=== PATIENT | male | born 1935 | race Caucasian/White ===

== ENCOUNTER → 2017-01-03 06:40 | Day surgery (SDC) | payer MEDICARE, BC ==
--- NOTE | 2016-12-24 21:57 | HP ---
PREOPERATIVE HISTORY AND PHYSICAL: DATE OF ADMISSION: 01/03/17 This patient is scheduled for Same-Day Surgery admission by Dr. Castro on , 01/03/17. DATE OF PREOPERATIVE HISTORY AND PHYSICAL EXAMINATION: 12/24/16 CHIEF COMPLAINT: Right inguinal hernia. HISTORY OF PRESENT ILLNESS: The patient is a 81-year-old male referred to Dr. Castro from Dr. Dalton with a right inguinal hernia. The patient noticed bulging in the right lower abdomen in early October. He denies any signs or symptoms to suggest incarceration or strangulation; he did not have any trauma to the area. Dr. Castro examined the patient and notes an obvious right inguinal hernia, which is soft and easily reducible. Dr. Castro has recommended open repair of the right inguinal hernia with mesh as a same-day procedure and has described the nature of the surgical procedure, the rationale for the procedure, the relevant risks, benefits and alternatives and today I reviewed the typical postoperative care and recovery with the patient and his . He has a significant cardiac history and has been cleared by Dr. Samano from Cardiology to proceed with the recommended surgery. The patient has had a chance to ask questions and stated that he understands the information and is satisfied with the answers given to his questions. He will sign surgical consent on the day of surgery. PAST MEDICAL HISTORY: Significant for aortic valve replacement and coronary artery bypass grafting at [facility], 05/11/16 for significant aortic stenosis and three-vessel disease with preserved LV systolic function; type 2 diabetes; hypertension; hypercholesterolemia; right bundle branch block; COPD; spinal stenosis. PAST SURGICAL HISTORY: Aortic valve replacement and three-vessel coronary artery bypass grafting at [facility], 05/11/16; cholecystectomy 1969; appendectomy many years ago; bilateral hip replacements over 20 years ago; and bilateral cataract extraction 2005. MEDICATIONS: 1. Metformin 1000 mg p.o. daily every evening. 2. Ocuvite eye health formula daily. 3. Zocor 40 mg p.o. daily at bedtime. 4. Aspirin 81 mg p.o. daily. The patient is to continue the aspirin in the perioperative period. 5. Glipizide ER 5 mg daily in the morning and 2 tablets daily every evening. 6. Furosemide 40 mg p.o. daily. 7. Desloratadine 5 mg p.o. daily. 8. Metoprolol ER 25 mg one half tablet p.o. daily. 9. Potassium chloride 10 mEq p.o. daily. 10. Magnesium oxide 400 mg p.o. daily. 11. Colace 100 mg p.o. b.i.d. p.r.n. 12. Vitamin D3 5000 International Units daily. 13. Spiriva HandiHaler 18 mcg one unit inhalation daily. 14. ProAir HFA 90 base mcg per actuation 2 puffs by mouth every 4 hours as needed. 15. Azelastine nasal spray 0.1% two inhalation in each nostril twice daily. ALLERGIES: PENICILLIN caused swelling of the hands, PNEUMOVAX caused some type of unspecified reaction, LISINOPRIL caused cough, HYDROCODONE and OXYCODONE caused extreme mental confusion, and the patient refuses to take those. FAMILY HISTORY: No known anesthesia complications, bleeding tendencies, or clotting disorders. SOCIAL HISTORY: He is and his accompanied him to the visit today; he denies the use of alcohol; he is a former smoker, formerly smoked up to 2 packs of cigarettes per day in the distant past, quit smoking cigarettes completely in 2014 and occasionally still smokes a pipe. REVIEW OF SYSTEMS: Please see Dr. Samano' cardiology consultation note for details; the patient underwent aortic valve replacement and three-vessel coronary artery bypass in April 2016 for significant aortic stenosis and triple- vessel disease; he has preserved LV systolic function; he is exercising routinely by walking for quarter mile using his walker due to knee pain and he has an exercise bike which he uses for 15 minutes daily; he denies any chest pain, pressure, or palpitations. He has had chronic lower extremity edema for more than a year and is on Lasix daily and uses bilateral compression stockings ; he has no heart failure symptoms. He has a history of type 2 diabetes, he does not check fingersticks; he has a history of COPD and associated chronic cough. No recent upper respiratory infections; he has good appetite and denies any gastrointestinal symptoms; he denies any previous anesthesia complications; he denies any history of deep vein thrombosis or pulmonary embolism; he received a blood transfusion in 2014 after rib fracture related to a fall. He denies any dysuria. PHYSICAL EXAMINATION GENERAL SURVEY: The patient is a 81-year-old male, well developed, well nourished, in no acute distress. VITAL SIGNS: Height 69.5 inches, weight 179 pounds, body mass index 26.2. Blood pressure 120/74, pulse 68 and regular, respiratory rate 16, temperature 98.1 tympanic. HEENT: Benign. NECK: Supple. No cervical lymphadenopathy. No thyromegaly. BACK: No CVA tenderness. LUNGS: Clear to auscultation, breath sounds are decreased throughout. HEART: Regular rate and rhythm. Mild systolic ejection murmur. ABDOMEN: Active bowel sounds, well-healed scar from previous appendectomy. Soft and nondistended and nontender throughout. No obvious masses, organomegaly , or evidence of umbilical hernia. Inguinal exam as done by Dr. Castro revealed an obvious right inguinal hernia, which is soft and easily reducible. No left inguinal hernia and the testes are normally descended. EXTREMITIES: Warm. Lower extremities with bilateral compression stockings. RECTAL: Deferred. NEUROLOGIC: Alert and oriented x3. Steady gait. SKIN: Warm, dry, intact. IMPRESSION: Right inguinal hernia. PLAN: Same-day surgery admission to Dr. Castro's service on , 01/03/17 , for open repair of right inguinal hernia with mesh. DARRYL APONTE NP CC: Dr. [facility], [facility]; Dr. Dalton; Dr. Samano * [id number]/[facility] #: [id number] MTDD
[~2017-01-03 06:40] MED LIST: Acetaminophen TAB* 325 MG PO PRN; Buffered Lidocaine 1% SYR 3ML* 3 ML/SYR SYRINGE INTRADERM ONE; Bupivacaine 0.5% W/EPI SDV* 30 ML VIAL ONE; Clindamycin 900 MG IVPREMIX(* 900 MG/50 ML SDV IV ONE; Dexamethasone IV* 4 MG/ML 1 ML (4 MG) IV SLOW PU ONE; Dexamethasone IV* 4 MG/ML 1 ML (4 MG) ONE; EPHEDrine (Pressors)* 50 MG/ML VIAL ONE; Famotidine IV* 10 MG/ML 2 ML (20 mg) IV ONE; Famotidine IV* 10 MG/ML 2 ML (20 mg) ONE; HYDROcodone/ACETAMIN 5-325 MG* 1 TAB PO PRN; Heparin VIAL(*) 5000 UNITS/ML VIAL (FIVE THOUSAND) ONE; Lidocaine 1% INJ* 10 MG/ML 30 ML SDV ONE; Lidocaine 2% PF * 5 ML VIAL ONE; Midazolam* 1 MG/ML 2 ML VIAL (2 MG) ONE; Ondansetron INJ* 2 MG/ML VIAL ONE; PROCHLORPERAZINE INJ 5 MG/ML 2 ML VIAL IV PRN; Phenylephrine IV* 40 MCG/ML 10 ML SYRINGE ONE; Propofol* 10 MG/ML 20 ML BTL IV PUSH ONE; fentaNYL* 50 MCG/ML 2 ML VIAL (100 MCG VIAL) IV PRN; fentaNYL* 50 MCG/ML 2 ML VIAL (100 MCG VIAL) ONE
[2017-01-03 11:09] VITALS: BP 136/69
--- NOTE | 2017-01-04 00:44 | OP ---
DATE OF OPERATION: 01/03/17 [facility] DATE OF : 39 SURGEON: Wilina Castro MD FIRE COORDINATOR: Elicia Martin NP ANESTHESIOLOGIST: Dr. Gamez ANESTHESIA: LMAC. PRE-OP DIAGNOSIS: Right inguinal hernia. POST-OP DIAGNOSIS: Right inguinal hernia. OPERATIVE PROCEDURE: Open repair of right inguinal hernia with mesh. DESCRIPTION OF PROCEDURE: The patient was supine on the operating table. After adequate intravenous sedation, compression stockings, Peter Hugger warmer, and intravenous antibiotics, the right groin was clipped and prepped with antiseptic and draped in a sterile fashion. Local infiltrative anesthesia was administered. An approximately 2-1/2 inch incision was created and carried down through the tissue layers to the external oblique, which was opened in the direction of its fibers. Cord structures were encircled with a [place] drain, tented upward. There was a large direct space hernia incorporating really the entirety of the inguinal floor. The transversalis was opened and the preperitoneal plane was developed. A Prolene Hernia System, PHSE patch, was put into place. The internal leaf was sutured at Abhijeet's ligament and underneath the transverse abdominis. The external leaf was placed on top and sutured at the tubercle, at the transverse abdominis, and at the inguinal ligament. Tails were split, brought around the cord structures, tacked down laterally. External oblique was closed over top with 2-0 Polysorb, Aiden's with 3-0 Polysorb, skin with 4-0 Surgipro followed by sterile dressing. He tolerated the procedure well. He was brought to Recovery in good condition. No complications. No drains. No pathologic specimens. Sponge and instrument counts correct. Estimated blood loss 10 mL. CC: Dr. Castro; Dr. Yosef Dalton; Dr. Genny Samano * [id number]/[facility] #: [id number] [facility]
== END | disposition home or self-care (01) ==
LOC: OR 06:40
PROVIDERS: ATTEND Surgery
DX: K40.90 Unilateral inguinal hernia, without obstruction or gangrene, not specified as recurrent (principal); I25.10 Atherosclerotic heart disease of native coronary artery without angina pectoris; Z95.1 Presence of aortocoronary bypass graft; E11.9 Type 2 diabetes mellitus without complications; I10 Essential (primary) hypertension; E78.00 Pure hypercholesterolemia, unspecified; J44.9 Chronic obstructive pulmonary disease, unspecified; Z79.82 Long term (current) use of aspirin; Z88.5 Allergy status to narcotic agent; Z88.0 Allergy status to penicillin; Z87.891 Personal history of nicotine dependence
CPT/HCPCS: C1781; J1100; J1644; J2250; J2405; J2704; J3010

== ENCOUNTER 2017-04-30 09:57 | Emergency (ER) | payer MEDICARE, BC ==
--- NOTE | 2017-04-30 11:44 | UC ---
bethany Santillan Timothy, scribed for Mónica Manzo MD on 04/30/17 at 1108 . General HPI - HPI Summary HPI Summary: Mr. Abbasi is a 81 yo male presenting to [facility] S/P a mechanical fall last night in which he tripped on a welcome mat and landed on his face and left arm. No LOC. Pt was evaluated on scene by EMS but declined transfer. Pt now c/o 8/10 dull pain in his nose and left elbow. Pt reports he aches "all over." He notes some epistaxis at the time of injury which resolved. Pt states he broke his dentures. He also c/o generalized stiffness. He states ice helps to alleviate his pain. He denies any LOC or memory loss, as well as blood from his ears, CP , SOB, abd pain, MICHELLE, or hematuria. No vision changes. Pt states neck feels stiff with movement on right side. No ext weakness or pain. He self-medicated with tramadol this morning with some improvement. tdap UTD. No paresthesia. No weakness ext x 4. Pt states "I didn't break anything, I just want my elbow looked at." Pt is on 81mg ASA QD. Pt is RHD. His MHx includes CABG x3, AVR, HI , angina, valvular heart disease, mitral stenosis, aortic valve replacement, HLD , HTN, aortic stenosis, RBBB, ulnar neuropathy, hip replacement x2, asthma, bronchitis, BPH, arthritis, DM II, claustrophobia, hay fever, shingles. Pt medication list reviewed this visit, he believes his tetanus is UTD. - History of Current Complaint Chief Complaint: UCTrauma Stated Complaint: FELL NOSE/ARM INJURY Time Seen by Provider: 04/30/17 11:10 Hx Obtained From: Patient Onset/Duration: Sudden Onset, Lasting Hours, Still Present Timing: Constant Onset Severity: Moderate Current Severity: Moderate Pain Intensity: 8 - /10 Pain Location at: LUE, nose Character: dull Alleviating: ice Associated Signs & Symptoms: Positive: Trauma, Other - LUE and facial pain. Negative: Abdominal Pain, Chest Pain, SOB - Allergy/Home Medications Allergies/Adverse Reactions: Allergies Allergy/AdvReac Type Severity Reaction Status Date / Time Lisinopril Allergy Intermediate Coughing Verified 04/30/17 10:07 Penicillins [PCN] Allergy Intermediate Rash And Verified 04/30/17 10:07 Itching Pneumococcal Polysaccharides Allergy Unknown Verified 04/30/17 10:07 [From Pneumovax] Reaction Details Home Medications: Home Medications Tiotropium [place] Monohydrate [Spiriva Respimat] 2 puff INH DAILY 04/30/17 [ History Confirmed 04/30/17] Tramadol HCl [Ultram] 1 tab PO Q6HR PRN 04/30/17 [History Confirmed 04/30/17] PMH/Surg Hx/FS Hx/Imm Hx Previously Healthy: No Endocrine History: Diabetes Cardiovascular History: Hypertension, Myocardial Infarction, Other - CABG, AVR, HI, angina, valvular heart disease, mitral stenosis, aortic valve replacement, HLD, HTN, aortic stenosis, RBBB Other Cardiovascular History: see above Respiratory History: Asthma, Bronchitis GI/ History: Other Other GI/ History: BPH - Surgical History Surgical History: Yes Surgery Procedure, Year, and Place: bilat total hip replacement , gallbladder , appendectomy as a child, bilat cataract with lens implants , heart valve bypass 04/2016; AVR- 2015 - Family History Known Family History: Positive: Cardiac Disease, Hypertension, Diabetes - Social History Occupation: Retired Lives: With Family Alcohol Use: None Substance Use Type: None Smoking Status (MU): Current Some Day Smoker Type: Pipe Amount Used/How Often: smokes a pipe occassionally Length of Time of Smoking/Using Tobacco: 60 Have You Smoked in the Last Year: Yes When Did the Patient Quit Smoking/Using Tobacco: 20-25 years ago quit cigarettes Household Exposure Type: Pipe Review of Systems Constitutional: Negative Skin: Negative Eyes: Negative ENT: Dental Pain - broken dentures, Other - nasal pain Respiratory: Negative Cardiovascular: Negative Gastrointestinal: Negative Genitourinary: Negative Motor: Negative Neurovascular: Negative Musculoskeletal: Other: - LUE pain, generalized stiffness, mild right sided neck pain Neurological: Negative Psychological: Negative All Other Systems Reviewed And Are Negative: Yes Physical Exam Triage Information Reviewed: Yes Appearance: Well-Appearing, No Pain Distress, Well-Nourished Vital Signs: Initial Vital Signs Temp 97.3 F 04/30/17 10:01 Pulse 55 04/30/17 10:01 Resp 18 04/30/17 10:01 BP 123/74 04/30/17 10:01 Pulse Ox 93 04/30/17 10:01 Vital Signs Reviewed: Yes Eyes: Positive: Conjunctiva Clear ENT: Negative: Nasal drainage - dried blood b/l nares. No septal hematoma No hemotympanium b/l No blood oropharphynx No pain or crepitus with palpation of zygomatic arch, orbits, nasal bridge Neck: Positive: Supple, No Lymphadenopathy, Other: - No pain with palp spinous process mild right paraspinal pain with ROM - minimal with direct palp Respiratory Exam: Normal Respiratory: Positive: Chest non-tender, Lungs clear, Normal breath sounds Cardiovascular Exam: Normal Cardiovascular: Positive: RRR, No Murmur, Pulses Normal Abdominal Exam: Normal Abdomen Description: Positive: Nontender, No Organomegaly, Soft, Other: - no ecchymosis, abrasion, contusion chest, back, abd Bowel Sounds: Positive: Present Musculoskeletal: Positive: Strength Intact, ROM Intact, Other: - full flex/ext elbow, pronate/supinate elbow no concern of joint involvement Neurological Exam: Normal Neurological: Positive: Alert, Muscle Tone Normal Psychological Exam: Normal Psychological: Positive: Normal Response To Family Skin Exam: Other - Pt with 3cm skin tear inferior to left elbow No active bleeing, scant debris in wound Skin: Positive: Other - Pt with non-suturable abrasions to nasal bridge and left knee Pt with mild ecchymosis nasal bridge with extension inferior left eye no crepitus Diagnostics - Radiology C- Spine XR Xray Interpretation: No Acute Changes - IMPRESSION: No definite fractures identified. Mild grade 1 spondylolisthesis of C4 on 5 is noted likely due to facet arthropathy. No prevertebral soft tissue swelling is noted. Radiology Interpretation Completed By: Radiologist - C-Spine XR: no definite fractures identified. Mild grade 1 spondylolisthesis of C4 on 5 is noted likely due to facet arthropathy. No prevertebral soft tissue swelling is noted. Re-Evaluation - Re-Evaluation First Eval Re-Evaluation Time: 11:56 Change: Unchanged Comment: Reviewed preliminary imaging study results with Pt. C-Collar was placed on Pt awaiting imaging results by radiology. Pt was advised it may be necessary for transfer to ED pending radiology read. Pt continues to deny any pain in neck or back Second Eval Re-Evaluation Time: 12:55 Change: Unchanged Comment: Reviewed final imaging results with C collar removed. No pain c/t/l/s. Full AROM c spine without difficulty or limitation. No spinous process pain with palpation. Encourage pt to take Tramadol and APAP prn pain, ice x 48 hours then heat. stretching. RN reported pt with mild hypoxia. Pt denies sob, cough, chest pain. I took pt off 02- room air sat 94-95%. lungs remain clear. D /w pt and wound care. analgesia. stretch. PCP f/u. Pt and spouse comfortable and in agreement with plan Course/Dx - Course Course Of Treatment: Yakov Abbasi is a 81 yo male presenting to [facility] S/P a mechanical trip and fall last night in which he fell causing 8/10 pain to his nose and LUE, along with broken dentures and generalized stiffness. Pt believes his tetanus is UTD. Pt took tramadol this morning with improvement of pain. Pt presents for evaluation and treatment of left elbow wound. Left elbow skin tear - wound cleansed and dressed by RN. imaging of c spine - pt with mild right paraspinal pain with exam. will reassess - Differential Dx - Multi-Symptom Provider Diagnoses: abrasion, skin tear, contusion - Physician Notifications Discussed Patient Care With: Ynes Cummins - Discussed Pt condition and C-Spine XR - will review XR Time Discussed With Above Provider: 12:18 Discharge - Discharge Plan Condition: Stable Disposition: HOME Prescriptions: Tramadol HCl [Ultram] 50 mg PO Q6HR PRN #15 tab MDD 4 PRN Reason: Pain Patient Education Materials: Abrasion (ED), Skin Tear (ED), Contusion in Adults (ED), Arthritis (ED) Referrals: Diony Rivera DO [Doctor of Osteopathy] - 2 Days Additional Instructions: Anticipate increased pain over the next 1-2 days. This is normal after an injury such as yours Okay to take Tramadol every 6 hours as prescribed. Take with food. Do NOT drive , operate machinery while taking this medication. Okay to take Tylenol every 6 hours for pain Apply ice (wrapped in a towel)20 minutes at a time, 2-3 times a day. SLow, gentle stretching exercises are important Cover your wounds with a thin layer of antibiotics ointment and bandage Contact your doctor tomorrow for a recheck this week. Contact your doctor, call 911 or go to the emergency department with any questions or concerns - increased or uncontrolled pain, vomiting, blood in your urine, shortness of breath, vision changes, numbness or tingling in your arms or legs or ANY Other concerns Please follow up with your primary care physician regarding your visit to urgent care today. Return to urgent care or the emergency department with any new symptoms or questions or concerns. The documentation as recorded by the bethany donis Timothy accurately reflects the service I personally performed and the decisions made by , Mónica Manzo MD.
[2017-04-30 12:19] VITALS: BP 119/71
--- NOTE | 2017-04-30 12:39 | RAD ---
Indication: Neck pain after fall. 3 views of the cervical spine are reviewed. There is normal vertebral height. Minimal grade 1 spondylolisthesis is present on C4 on 5 likely due to facet arthropathy. No definite fracture is noted. 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 IMPRESSION: No definite fractures identified. Mild grade 1 spondylolisthesis of C4 on 5 is noted likely due to facet arthropathy. No prevertebral soft tissue swelling is noted.
== END 2017-04-30 13:16 | disposition home or self-care (01) ==
LOC: UCEAST 09:57
DX: S51.012A Laceration without foreign body of left elbow, initial encounter (principal); S00.31XA Abrasion of nose, initial encounter; S80.212A Abrasion, left knee, initial encounter; W01.0XXA Fall on same level from slipping, tripping and stumbling without subsequent striking against object, initial encounter; Y93.9 Activity, unspecified; Y92.9 Unspecified place or not applicable; Y99.9 Unspecified external cause status; M43.12 Spondylolisthesis, cervical region; I09.9 Rheumatic heart disease, unspecified; Z95.1 Presence of aortocoronary bypass graft; I25.2 Old myocardial infarction; Z95.2 Presence of prosthetic heart valve; E78.5 Hyperlipidemia, unspecified; I10 Essential (primary) hypertension; I45.10 Unspecified right bundle-branch block; Z72.0 Tobacco use
CPT/HCPCS: 72040; 99213; G0463